=== PATIENT | male | born 1950 | race Two or more races ===

== ENCOUNTER 2017-07-07 12:13 | Observation (INO) | payer OTHER, MEDICAID ==
[~2017-07-07] VITALS: Ht 172.7 cm; Wt 81.6 kg
[2017-07-07] MEDS ORDERED: TRIAMCINOLONE A80 GM TP (12:33)
[2017-07-07] MEDS ORDERED: TAB-A-VITE-MIN1 EACH ORAL (12:33)
[2017-07-07] MEDS ORDERED: ADVAIR 250-501 EACH INH (12:33)
[2017-07-07] MEDS ORDERED: TIZANIDINE HCL4 MG ORAL (12:33)
[2017-07-07] MEDS ORDERED: FUROSEMIDE40 MG ORAL (12:33)
[2017-07-07] MEDS ORDERED: POTASSIUM CHLOR8 ME2 PO (12:33)
[2017-07-07] MEDS ORDERED: VOLTAREN100 G1 TP (12:33)
[2017-07-07] MEDS ORDERED: ELIQUIS5 MG PO (12:33)
[2017-07-07] MEDS ORDERED: ZOCOR20 M1 ORAL (12:33)
[2017-07-07] MEDS ORDERED: MUPIROCIN22 GM TOPIC (12:33)
[2017-07-07] MEDS ORDERED: LEVOFLOXACIN500 MG ORAL (12:33)
[2017-07-07 12:44] LABS: BASOPHILS % (AUTO) 0.8 % (0.0-2.0); EOSINOPHILS % (AUTO) 1.7 % (0.0-3.0); LYMPHOCYTES % (AUTO) 22.6 % (20.0-45.0); MEAN CORPUSCULAR HEMOGLOBIN 27.5 PG (27.0-31.0); MEAN CORPUSCULAR HGB CONC 30.3 G/DL (32.0-36.0); MEAN CORPUSCULAR VOLUME 91 FL (80-99); MEAN PLATELET VOLUME 6.8 FL (6.5-10.1); MONOCYTES % (AUTO) 7.7 % (1.0-10.0); NEUTROPHILS % (AUTO) 67.2 % (45.0-75.0); PLATELET COUNT 257 K/UL (150-450); RED BLOOD COUNT 4.43 M/UL (4.70-6.10); RED CELL DISTRIBUTION WIDTH 15.9 % (11.6-14.8); WHITE BLOOD COUNT 10.5 K/UL (4.8-10.8)
[2017-07-07 12:47] LABS: APPEARANCE,URINE CLEAR; KETONES,URINE NEGATIVE (NEGATIVE); LEUKOCYTE ESTERASE ,URINE NEGATIVE (NEGATIVE); NITRITE,URINE NEGATIVE (NEGATIVE); PH,URINE 5 (4.5-8.0); PROTEIN,URINE NEGATIVE (NEGATIVE); UROBILINOGEN,URINE NORMAL MG/DL (0.0-1.0)
[2017-07-07 12:58] VITALS: BP 101/49
[2017-07-07 13:00] LABS: ANION GAP 10 mmol/L (5-15); CALCIUM 9.5 MG/DL (8.5-10.1); CARBON DIOXIDE 27 MMOL/L (21-32); CHLORIDE 102 MMOL/L (98-107); CREATININE 1.2 MG/DL (0.55-1.30); GLOMERULAR FILTRATION RATE > 60 mL/min (>60); POTASSIUM 3.9 MMOL/L (3.5-5.1); SODIUM 139 MMOL/L (136-145)
[2017-07-07] MEDS ORDERED: Sodium Chloride 500ML 500 ML IV ONE (13:00)
[2017-07-07 13:05] LABS: ALANINE AMINOTRANSFERASE 21 U/L (12-78); ALBUMIN/GLOBULIN RATIO 0.7 (1.0-2.7); ASPARTATE AMINO TRANSFERASE 14 U/L (15-37); LIPASE 112 U/L (73-393); TOTAL PROTEIN 8.2 G/DL (6.4-8.2)
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
[2017-07-07 14:00] VITALS: BP 111/58
[2017-07-07] MEDS ORDERED: Norco 5mg/325mg tab ORAL ONE (14:30)
--- NOTE | 2017-07-07 14:31 | Diagnostic Imaging Report ---
Indication: Cough Technique: One view of the chest Comparison: none Findings: There is atelectasis at the left lung base. Left chest pacemaker is demonstrated. There is slight blunting of left costophrenic sulcus. The heart size is normal Impression: Left basilar atelectasis Left costophrenic sulcus blunting, could indicate atelectasis or pleural fluid. No acute process otherwise
[2017-07-07 15:14] VITALS: BP 125/76
[2017-07-07 16:52] VITALS: BP 123/70
[2017-07-07 20:00] VITALS: BP 106/67
[2017-07-07] MEDS: Eliquis 2.5mg tablet ORAL SCH (20:12)
[2017-07-07] MEDS: Pneumococcal Vaccine 25mcg/0.5ml IM ONE ×2 (22:00→22:37)
[2017-07-07] MEDS: Flu Vaccine Quadrivalent 0.5ml IM ONE ×2 (22:00→22:39)
[2017-07-08 00:45] VITALS: BP 106/71
[2017-07-08] MEDS ORDERED: Norco 5mg/325mg tab ORAL PRN (00:45)
[2017-07-08] MEDS ORDERED: dilTIAZem HCl 60mg tab ORAL ONE (01:00)
[2017-07-08] MEDS: dilTIAZem HCl CD 180mg cap ORAL SCH ×2 (01:02→10:40)
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
[2017-07-08] MEDS: Norco 5mg/325mg tab ORAL PRN ×2 (03:29→11:09)
[2017-07-08 04:00] VITALS: BP 105/52
[2017-07-08 05:50] LABS: ALANINE AMINOTRANSFERASE 18 U/L (12-78); ALBUMIN/GLOBULIN RATIO 0.7 (1.0-2.7); ANION GAP 10 mmol/L (5-15); ASPARTATE AMINO TRANSFERASE 15 U/L (15-37); CARBON DIOXIDE 24 MMOL/L (21-32); CHLORIDE 103 MMOL/L (98-107); CREATININE 1.2 MG/DL (0.55-1.30); GLOMERULAR FILTRATION RATE > 60 mL/min (>60); MAGNESIUM 1.7 MG/DL (1.8-2.4); POTASSIUM 3.9 MMOL/L (3.5-5.1); SODIUM 137 MMOL/L (136-145); TOTAL PROTEIN 6.8 G/DL (6.4-8.2)
[2017-07-08 08:00] VITALS: BP 96/50
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
[2017-07-08] MEDS ORDERED: NORCO 5-325 TA1 EACH ORAL (08:18)
[2017-07-08] MEDS ORDERED: Furosemide 40mg tab ORAL SCH (09:00)
[2017-07-08] MEDS: Eliquis 2.5mg tablet ORAL SCH (09:04)
[2017-07-08] MEDS ORDERED: Pneumococcal Vaccine 25mcg/0.5ml IM ONE (09:30)
[2017-07-08] MEDS: Flu Vaccine Quadrivalent 0.5ml IM ONE ×2 (11:12→11:20)
[2017-07-08 12:00] VITALS: BP 103/62
--- NOTE | 2017-07-08 12:20 | Wound Care Consultation ---
Wound Assessment Wound Assessment #1: Wound Number: 1 Wound Present on Admission: Yes New Wound: No Status Change of Wound: No Wound Location Body Site Modif: right, medial Wound Location Body Site: malleolus/ankle Wound Type: lesion-etiology unknown Obey Test: Does not Obey Wound Thickness: Full Thickness Wound Length: 3.0 Wound Width: 1.5 Wound Depth: utd Percent of Wound Bed Yellow/Wh: 100 Wound Drainage Description: Serosanguineous Wound Drainage Amount: Scant Wound Drainage Odor: None/Absent Tissue Surrounding Wound: Indurated Wound General Appearance: Draining Wound Assessment #2: Wound Number: 2 Wound Present on Admission: Yes New Wound: No Status Change of Wound: No Wound Location Body Site Modif: right, lateral, dorsal Wound Location Body Site: foot Wound Type: lesion-etiology unknown Obey Test: Does not Obey Wound Thickness: Full Thickness Wound Length: 2.0 Wound Width: 2.0 Wound Depth: less than 0.1 Percent of Wound Morris/Red: 100 Wound Drainage Description: Serosanguineous Wound Drainage Amount: Scant Wound Drainage Odor: None/Absent Tissue Surrounding Wound: Indurated Wound General Appearance: Reddened, Draining Wound Comment #1 Right dorsal foot open wound etiology unknown. Noted with +2 edema and warm to touch. Pt stated "It happened when I was [address] but can't remember how it happened" #2 Right medial malleolus open wound etiology unknown #3 Left and right feet with dry and flaky skin Recommendation -Local wound care per protocol -Keep clean and dry -Turn and reposition -Optimize nutrition -Offload both heels -Heel protector on both heels -Apply A&D ointment to both lower legs -Assess and f/u accordingly for any changes RUMA JEWELL RN Jul 08, 2017 12:20
--- NOTE | 2017-07-09 00:30 | Progress Note ---
DATE: 07/08/2017 CARDIOLOGY PROGRESS NOTE SUBJECTIVE: The patient has diffuse pain. No chest pain. No shortness of breath. Monitored rhythm, atrial fibrillation with rate controlled. OBJECTIVE: VITAL SIGNS: Blood pressure 96/50 to 103/62, heart rate 82, respiratory rate 18, and afebrile. Oxygen saturation on room air is 97% to 100%. NECK: Supple. LUNGS: Clear. CARDIAC: Irregularly irregular. Normal S1 and S2. ABDOMEN: Soft. EXTREMITIES: No edema. LABORATORY DATA: Potassium 3.9, BUN 26, and creatinine 1.2. Magnesium 1.7. Troponin is negative x3. Albumin 2.9. Pro-natriuretic peptide is 1424. IMPRESSION: 1. Medication noncompliance. 2. Chronic atrial fibrillation. 3. Permanent pacemaker. 4. Acute on chronic diastolic congestive heart failure. 5. Moderate protein-calorie malnutrition. 6. Recent incarceration. 7. Amphetamine abuse. 8. Chronic obstructive pulmonary disease. PLAN: 1. Continue cardioembolic prophylaxis with apixaban. 2. Maintain diltiazem for rate control. 3. Magnesium replacement orally. 4. Counseled him to avoid amphetamine use. 5. Protein supplement by dietary changes. 6. Resume maintenance dose diuretic therapy. 7. Outpatient followup. Jerry Braun M.D. DR: DINA JOB#: [id number] CC:
--- NOTE | 2017-07-09 18:30 | Cardiology Report ---
APPROVED REPORT EKG Measurement Heart [id number] Atrial fibrillation with rapid ventricular response Abnormal ECG
--- NOTE | 2017-08-04 10:06 | Discharge Summary ---
Discharge Summary Hospital Course Date of Admission Jul 07, 2017 at 15:29 Date of Discharge Jul 08, 2017 at 14:15 Admitting Diagnosis weakness/Afib HPI Desean Ferrara is a 67 year old male who was admitted on Jul 07, 2017 at 15:29 for Weakness, Atrial Fibrilation Hospital Course [id number] Discharge Discharge Disposition Patient was discharged to Home (01) Discharge Diagnoses: Hyun Monk NP Aug 04, 2017 10:06
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
== END 2017-07-08 14:15 | disposition home or self-care (01) ==
LOC: EDBD 12:13 → EMR 13:03 → ENRESERV 13:30 → 2E 15:29 → INTOOBSV 15:29 → EDBEDREQ 15:29
DX: I50.33 Acute on chronic diastolic (congestive) heart failure (principal); I11.0 Hypertensive heart disease with heart failure; R07.89 Other chest pain; I48.91 Unspecified atrial fibrillation; I24.9 Acute ischemic heart disease, unspecified; E44.0 Moderate protein-calorie malnutrition; F15.10 Other stimulant abuse, uncomplicated; J44.9 Chronic obstructive pulmonary disease, unspecified; S91.301A Unspecified open wound, right foot, initial encounter; S91.001A Unspecified open wound, right ankle, initial encounter; Z59.0 Homelessness; Z79.01 Long term (current) use of anticoagulants; Z91.14 Patient's other noncompliance with medication regimen; Z95.0 Presence of cardiac pacemaker; Z68.27 Body mass index [BMI] 27.0-27.9, adult; Z87.891 Personal history of nicotine dependence; Z86.718 Personal history of other venous thrombosis and embolism; X58.XXXA Exposure to other specified factors, initial encounter; Y92.410 Unspecified street and highway as the place of occurrence of the external cause; Y93.9 Activity, unspecified; Z23 Encounter for immunization
CPT/HCPCS: 36415 ×2; 71010; 80053 ×2; 80307; 81003; 83605; 83690; 83735; 83880; 84443; 84484 ×2; 85025; 87081 ×2; 90732; 93005; 99285; G0008; G0009; G0378 ×2; Q2035; 90630